=== PATIENT | male | born 1975 | race Hispanic/Latino ===

== ENCOUNTER 2020-06-21 19:09 | Inpatient (IN) | payer SELFPAY ==
[~2020-06-21] VITALS: Ht 172.7 cm; Wt 94.6 kg
[2020-06-21] MEDS ORDERED: SODIUM CHLORIDE 0.9% 1000ML 2,000 ML IV ONE (19:50)
[2020-06-21] MEDS ORDERED: CLINDAMYCIN 900 MG/D5% WATER 50 ML IV ONE (19:50)
[2020-06-21] MEDS ORDERED: CEFTRIAXONE SODIUM 2 GM VIAL ONE (19:50)
[2020-06-21] MEDS ORDERED: SODIUM CHLORIDE 0.9% 50 ML IV ONE (19:51)
[2020-06-21 19:59] LABS: BASOPHILS % (AUTO) 0.5 % (0.0-5.0); EOSINOPHILS % (AUTO) 0.1 % (0.0-8.0); LYMPHOCYTES % (AUTO) 14.2 % (21.0-51.0); MEAN CORPUSCULAR HEMOGLOBIN 27.2 pg (27.0-33.0); MEAN CORPUSCULAR HGB CONC 33.3 g/dL (32.0-36.0); MEAN CORPUSCULAR VOLUME 81.5 fL (79-99); NEUTROPHILS % (AUTO) 73.4 % (40.0-77.0); PLATELET COUNT (AUTO) 266 K/uL (130-400); RED BLOOD CELL COUNT(AUTO) 5.89 MIL/uL (4.50-6.20); RED CELL DISTRIBUTION WIDTH 15.9 % (11.0-15.5); WHITE BLOOD COUNT (AUTO) 18.2 K/uL (4.8-10.8)
[2020-06-21] MEDS ORDERED: IOHEXOL-350 50ML VIAL IV ONE (20:05)
[2020-06-21 20:11] LABS: CREATININE 1.3 mg/dL (0.5-1.5); POTASSIUM 3.6 mmol/L (3.5-5.1)
[2020-06-21 20:12] LABS: INR 1.16 (0.85-1.15); PARTIAL THROMBOPLASTIN TIME 30.7 SEC (26.3-35.5); PROTHROMBIN TIME 12.5 SEC (9.6-11.6)
[2020-06-21 20:13] LABS: APPEARANCE,URINE Clear (CLEAR); BILIRUBIN,URINE Negative (NEGATIVE); COLOR,URINE Yellow (YELLOW); GLUCOSE, URINE (UA) Negative (NEGATIVE); KETONES,URINE 15 mg/dL (NEGATIVE); LEUKOCYTE ESTERASE ,URINE Negative (NEGATIVE); NITRATE,URINE Negative (NEGATIVE); OCCULT BLOOD,URINE Negative (NEGATIVE); PROTEIN,URINE Trace mg/dL (NEGATIVE); UROBILINOGEN,URINE 0.2 mg/dL (0.2-1.0)
[2020-06-21 20:15] LABS: ALBUMIN 3.5 g/dL (3.5-5.0); BILIRUBIN,TOTAL 1.3 mg/dL (0.2-1.0); TOTAL PROTEIN, SERUM 8.2 g/dL (6.0-8.3)
[2020-06-21 20:49] LABS: BACTERIA,URINE Rare /HPF (None Seen); MUCUS,URINE Few LPF (None Seen); RBC,URINE 0-1 /HPF (0-1); SQUAMOUS EPITHELIAL CELL,UR Few /HPF (0-2); WBC,URINE 0-1 /HPF (0-1)
[2020-06-21] MEDS ORDERED: KETOROLAC TROMETHAMINE 30MG/ML ONE (21:03)
[2020-06-21] MEDS ORDERED: HYDROCODONE/ACETAMINOPHEN 5/325 MG TAB PO PRN (22:30)
[2020-06-21] MEDS ORDERED: ACETAMINOPHEN 325 MG TAB PO PRN ×2 (22:30)
[2020-06-21] MEDS ORDERED: NITROGLYCERIN 0.4 MG SL TAB SL PRN (22:30)
[2020-06-21] MEDS ORDERED: VANCOMYCIN PROTOCOL PER PHARMACY IV PRN (22:30)
[2020-06-21] MEDS ORDERED: DIPHENHYDRAMINE HCL 25 MG CAPSULE PO PRN (22:30)
[2020-06-21] MEDS ORDERED: ONDANSETRON HCL 4 MG/2 ML VIAL IV PRN (22:30)
[2020-06-21] MEDS ORDERED: SODIUM CHLORIDE 0.9% 1000ML 1,000 ML IV ONE ×2 (22:34→23:40)
[2020-06-21] MEDS ORDERED: ACETAMINOPHEN 325 MG TAB ONE (23:26)
[2020-06-21] MEDS ORDERED: VANCOMYCIN 1GM+NS 250ML IV SCH (23:45)
[2020-06-22 04:58] LABS: HEMATOCRIT 40.1 % (42-54); MEAN CORPUSCULAR HEMOGLOBIN 27.1 pg (27.0-33.0); MEAN CORPUSCULAR HGB CONC 33.2 g/dL (32.0-36.0); MEAN CORPUSCULAR VOLUME 81.8 fL (79-99); PLATELET COUNT (AUTO) 198 K/uL (130-400); RED CELL DISTRIBUTION WIDTH 15.6 % (11.0-15.5); WHITE BLOOD COUNT (AUTO) 20.4 K/uL (4.8-10.8)
[2020-06-22 05:16] LABS: ALBUMIN 2.7 g/dL (3.5-5.0); BILIRUBIN,TOTAL 1.1 mg/dL (0.2-1.0); CREATININE 1.1 mg/dL (0.5-1.5); POTASSIUM 3.3 mmol/L (3.5-5.1); TOTAL PROTEIN, SERUM 6.4 g/dL (6.0-8.3)
[2020-06-22 05:22] LABS: BAND NEUTROPHILS % (MANUAL) 11 % (0-2); LYMPHOCYTES % (MANUAL) 10 % (22-44); MAN.DIFF COMMENT-IMPRESSION MANUAL DIFFERENTIAL; MONOCYTES % (MANUAL) 4 % (2-9); PLATELET MORPHOLOGY COMMENT ADEQUATE; SEGMENTED NEUTROPHILS % 75 % (40-70)
[2020-06-22] MEDS: SODIUM CHLORIDE 0.9% 1000ML 1,000 ML IV SCH ×2 (08:30→18:29)
[2020-06-22 08:45] VITALS: BP 143/84
[2020-06-22] MEDS ORDERED: COMPOUND IV REFRIGERATED 1 EACH IVSOLN MISC PRN (09:15)
[2020-06-22] MEDS: FAMOTIDINE 20MG TAB 20 MG TAB PO SCH ×2 (09:28→20:14)
[2020-06-22] MEDS: HYDROCODONE/ACETAMINOPHEN 5/325 MG TAB PO PRN ×2 (09:30→23:53)
[2020-06-22] MEDS: ENOXAPARIN SODIUM 30 MG/0.3 ML SQ SCH (09:31)
[2020-06-22] MEDS: VANCOMYCIN 1.25 GM in SODIUM CHLORIDE 0.9% 250 ML IV SCH ×2 (10:21→21:16)
[2020-06-22] MEDS ORDERED: CLIN300C9 PO (10:37)
[2020-06-22 11:03] VITALS: BP 144/90
--- NOTE | 2020-06-22 13:09 | NUR ---
Pavithra MERINO NP, IN ROOM ASSESSING AND SPEAKING WITH PT.
[2020-06-22] MEDS ORDERED: KETOROLAC TROMETHAMINE 30MG/ML ONE (13:18)
--- NOTE | 2020-06-22 13:59 | NUR ---
INITIAL SW spoke with patient. He states he lives alone. No home services or DME. Patient is able to complete ADL's independently and drives. Patient is not working at this time. PCP was Dr. Owen Sanchez but he has not seen him in 2 years. Pharmacy is [facility] [facility] located on [address] [place] [address]. DCP is home. Patient has no insurance or benefits. He is a [place] citizen and has worked in the [place]. Patient was provided with community resources for post hospitalization follow up. Patient was also provided with Good RX card for prescriptions and educated on [employer] $4 medication program and [facility] $5 medication program. Patient is being assisted by [employer] for financial matters. Addendum: 06/22/20 at 1402 by PATSY MICHAEL SS Amended: Links added.
[2020-06-22 15:11] VITALS: BP 131/78
--- NOTE | 2020-06-22 17:14 | NUR ---
DR. HURT AND Pavithra MERINO, FORMULA TECHNICIAN, IN ROOM SPEAKING WITH PT. RE:PLAN OF CARE; PT.'S QUESTIONS ANSWERED.
[2020-06-22] MEDS ORDERED: POTASSIUM CHLORIDE 20 MEQ ERTAB PO PRN (19:15)
[2020-06-22] MEDS ORDERED: POTASSIUM CHLORIDE 20MEQ/100ML 100 ML IV PRN (19:15)
[2020-06-22] MEDS ORDERED: LIDOCAINE HCL-MPF 1% 2ML VIAL IV PRN (19:15)
[2020-06-22 19:50] VITALS: BP 161/96
[2020-06-22] MEDS ORDERED: ZOSYN 3.375GM+NS 50ML 50 ML IV SCH (20:00)
[2020-06-22] MEDS: POTASSIUM CHLORIDE 10% ELIXIR 20 MEQ/15 ML UDCUP PO PRN ×2 (20:14→22:26)
[2020-06-22] MEDS: KETOROLAC TROMETHAMINE 15MG/ML IV PRN (20:14)
--- NOTE | 2020-06-22 20:15 | NUR ---
MEDS SHIFT ASSESSMENT DONE, PLEASE REFER TO CHART. PT CLAIMS OF FACIAL AND NECK PAINS. DUE MEDS ADMINISTERED, TOLERATED WELL. MEDICATED WITH TORADOL FOR PAIN. STARTED ON PO POTASSIUM PER PROTOCOL. KEPT COMFORTABLE IN BED WITH HOB ELEVATED. CALL LIGHT WITHIN REACH. WILL RE-ASSESS PT. Addendum: 06/22/20 at 2232 by YANETH AVALOS RN RN Amended: Links added.
--- NOTE | 2020-06-22 20:20 | NUR ---
ARMORED SERVICE TECHNICIAN VHIC, ARMORED SERVICE TECHNICIAN FOR HOSPITALIST, ON THE FLOOR MAKING ROUNDS FOR NURSES. REFERRED PT'S CLAIMS THAT SWELLING ON HER FACE IS GETTING WORSE AFFECTING HIS NECK AND EYES. INFORMED THAT ZOSYN WAS JUST ORDERED FOR ADDITIONAL ANTIBIOTICS AND ALREADY STARTED. ORDERED ID CONSULT. CALLED DR BOGGS VIA PHONE AND INFORMED OF CONSULT. ID STATED TO INCLUDE PT ON HIS CENSUS. NO FURTHER ORDERS RECEIVED.
[2020-06-22 21:20] VITALS: BP 134/80
[2020-06-22] MEDS: ZOSYN 3.375GM+NS 50ML 50 ML IV SCH (21:20)
--- NOTE | 2020-06-22 21:20 | NUR ---
V/S RE-CHECKED V/S AND BP DECREASED TO 139/80 BUT TEMPERATURE INCREASED TO 99.6. SECOND PIV INSERTED TO LH G20 AND IV VANCO INFUSED. PT CLAIMS HE WANTED SOME TYLENOL TO PREVENT HIM FROM HAVING CHILLS HIS TEMPERATURE IS INCREASING. MEDICATED WITH TYLENOL 650MG PO. KEPT COMFORTABLE IN BED AND ENCOURAGED TO REST AND SLEEP. PT HAS HIS OWN CPAP MACHINE FROM HOME FOR HS USE.
[2020-06-22 23:24] VITALS: BP 148/89
--- NOTE | 2020-06-22 23:53 | NUR ---
PAIN PT CALLS FOR PAIN MEDICATION, CLAIMS OF PAIN ON HIS FACE AND NECK AREAS. MEDICATED WITH NORCO PO. KEPT COMFORTABLE IN BED. WILL RE-ASSESS PT. Addendum: 06/23/20 at 0005 by YANETH AVALOS RN RN Amended: Links added.
--- NOTE | 2020-06-23 01:35 | NUR ---
ROUNDS PT RESTING WELL, NO DISTRESS NOTED. KEPT UNDISTURBED FOR NOW. WILL CONTINUE TO MONITOR. CALL LIGHT WITHIN REACH.
[2020-06-23] MEDS: SODIUM CHLORIDE 0.9% 1000ML 1,000 ML IV SCH ×2 (03:04→21:26)
[2020-06-23] MEDS: POTASSIUM CHLORIDE 10% ELIXIR 20 MEQ/15 ML UDCUP PO PRN (03:04)
[2020-06-23] MEDS: KETOROLAC TROMETHAMINE 15MG/ML IV PRN ×4 (03:04→21:36)
[2020-06-23 04:00] VITALS: BP 142/86
--- NOTE | 2020-06-23 05:30 | NUR ---
ROUNDS DERRICK ENGINEER IN AND AWAKENED PT TO DRAW BLOOD. NO CONCERNS VERBALIZED. KEPT RESTED AND COMFORTABLE. FOR MORE CARE.
[2020-06-23] MEDS: HYDROCODONE/ACETAMINOPHEN 5/325 MG TAB PO PRN ×4 (05:51→22:42)
[2020-06-23 08:00] VITALS: BP 139/87
[2020-06-23 08:40] LABS: BASOPHILS % (AUTO) 0.1 % (0.0-5.0); EOSINOPHILS % (AUTO) 0.6 % (0.0-8.0); HEMATOCRIT 39.5 % (42-54); LYMPHOCYTES % (AUTO) 13.8 % (21.0-51.0); MEAN CORPUSCULAR HEMOGLOBIN 26.7 pg (27.0-33.0); MEAN CORPUSCULAR HGB CONC 31.6 g/dL (32.0-36.0); MEAN CORPUSCULAR VOLUME 84.4 fL (79-99); MONOCYTES % (AUTO) 8.5 % (3.0-13.0); NEUTROPHILS % (AUTO) 75.7 % (40.0-77.0); PLATELET COUNT (AUTO) 212 K/uL (130-400); RED BLOOD CELL COUNT(AUTO) 4.68 MIL/uL (4.50-6.20); RED CELL DISTRIBUTION WIDTH 15.9 % (11.0-15.5); WHITE BLOOD COUNT (AUTO) 14.3 K/uL (4.8-10.8)
[2020-06-23 08:50] LABS: POTASSIUM 4.2 mmol/L (3.5-5.1)
[2020-06-23] MEDS: ZOSYN 3.375GM+NS 50ML 50 ML IV SCH ×2 (09:13→19:45)
[2020-06-23] MEDS: FAMOTIDINE 20MG TAB 20 MG TAB PO SCH ×2 (09:13→19:45)
[2020-06-23] MEDS: ENOXAPARIN SODIUM 30 MG/0.3 ML SQ SCH (09:14)
[2020-06-23] MEDS: VANCOMYCIN 1.25 GM in SODIUM CHLORIDE 0.9% 250 ML IV SCH (10:06)
--- NOTE | 2020-06-23 11:21 | NUR ---
DR. JEREZ IN TO SEE PT.DR. ZAMUDIO TO CONSULT.
--- NOTE | 2020-06-23 11:42 | NUR ---
WHEN READY FOR DC, CM TO ASSIST WITH GOOD RX OR OTHER STRATEGIES FOR MEDICATIONS Addendum: 06/23/20 at 1143 by OFELIA CARLISLE RN CM Amended: Links added.
[2020-06-23 12:00] VITALS: BP 143/86
--- NOTE | 2020-06-23 14:00 | NUR ---
DR. BOGGS VISITED WITH PT. REVIEWED CHART/MEDS. CONTINUE SAME ABX.
[2020-06-23 16:00] VITALS: BP 148/86
--- NOTE | 2020-06-23 18:00 | NUR ---
DR. ZAMUDIO IN TO SEE PT. STATES WILL SEE HIM OUTPATIENT AND GET A SCAN THEN.
[2020-06-23 20:20] VITALS: BP 147/92
[2020-06-23] MEDS: VANCOMYCIN 1.5 GM in SODIUM CHLORIDE 0.9% 250 ML IV SCH (22:07)
[2020-06-23 23:56] VITALS: BP 143/89
[2020-06-24] MEDS: KETOROLAC TROMETHAMINE 15MG/ML IV PRN ×2 (03:34→09:44)
[2020-06-24 04:14] VITALS: BP 146/85
[2020-06-24 06:11] LABS: BASOPHILS % (AUTO) 0.2 % (0.0-5.0); EOSINOPHILS % (AUTO) 0.9 % (0.0-8.0); HEMATOCRIT 38.2 % (42-54); LYMPHOCYTES % (AUTO) 15.4 % (21.0-51.0); MEAN CORPUSCULAR HEMOGLOBIN 27.1 pg (27.0-33.0); MEAN CORPUSCULAR HGB CONC 32.7 g/dL (32.0-36.0); MEAN CORPUSCULAR VOLUME 82.9 fL (79-99); MONOCYTES % (AUTO) 6.6 % (3.0-13.0); NEUTROPHILS % (AUTO) 75.6 % (40.0-77.0); PLATELET COUNT (AUTO) 213 K/uL (130-400); RED BLOOD CELL COUNT(AUTO) 4.61 MIL/uL (4.50-6.20); RED CELL DISTRIBUTION WIDTH 15.6 % (11.0-15.5); WHITE BLOOD COUNT (AUTO) 12.5 K/uL (4.8-10.8)
[2020-06-24] MEDS: SODIUM CHLORIDE 0.9% 1000ML 1,000 ML IV SCH ×3 (06:13→20:30)
[2020-06-24] MEDS: HYDROCODONE/ACETAMINOPHEN 5/325 MG TAB PO PRN ×3 (06:13→20:51)
[2020-06-24 06:29] LABS: POTASSIUM 4.1 mmol/L (3.5-5.1)
[2020-06-24 07:08] LABS: CRP QUANTITATIVE 272.1 mg/L (0.00-9.0)
[2020-06-24 07:30] VITALS: BP 133/86
[2020-06-24 07:41] LABS: CREATININE 0.9 mg/dL (0.5-1.5)
[2020-06-24] MEDS: VANCOMYCIN 1.5 GM in SODIUM CHLORIDE 0.9% 250 ML IV SCH ×2 (09:43→20:34)
[2020-06-24] MEDS: ZOSYN 3.375GM+NS 50ML 50 ML IV SCH ×2 (09:43→20:33)
[2020-06-24] MEDS: FAMOTIDINE 20MG TAB 20 MG TAB PO SCH ×2 (09:44→20:34)
[2020-06-24] MEDS: ENOXAPARIN SODIUM 30 MG/0.3 ML SQ SCH (09:45)
[2020-06-24 11:00] VITALS: BP 137/91
[2020-06-24 16:00] VITALS: BP 151/91
[2020-06-24] MEDS ORDERED: KETOROLAC TROMETHAMINE 30MG/ML ONE (16:57)
[2020-06-24 20:07] VITALS: BP 145/87
[2020-06-24] MEDS ORDERED: DEXAMETHASONE SOD PHOSPHATE 4 MG/ML 1ML VIAL ONE (20:32)
[2020-06-24] MEDS: DEXAMETHASONE SOD PHOSPHATE 4 MG/ML 1ML VIAL IVP SCH (20:34)
[2020-06-25] VITALS (7 sets, daily range): BP systolic 123–138; BP diastolic 75–88
[2020-06-25] MEDS: DEXAMETHASONE SOD PHOSPHATE 4 MG/ML 1ML VIAL IVP SCH ×3 (06:25→21:57)
[2020-06-25 06:26] LABS: HEMATOCRIT 38.8 % (42-54); MEAN CORPUSCULAR HEMOGLOBIN 26.7 pg (27.0-33.0); MEAN CORPUSCULAR HGB CONC 32.2 g/dL (32.0-36.0); MEAN CORPUSCULAR VOLUME 82.7 fL (79-99); RED BLOOD CELL COUNT(AUTO) 4.69 MIL/uL (4.50-6.20); RED CELL DISTRIBUTION WIDTH 15.6 % (11.0-15.5); WHITE BLOOD COUNT (AUTO) 10.8 K/uL (4.8-10.8)
[2020-06-25] MEDS: SODIUM CHLORIDE 0.9% 1000ML 1,000 ML IV SCH ×2 (06:30→15:48)
[2020-06-25] MEDS: FAMOTIDINE 20MG TAB 20 MG TAB PO SCH ×2 (09:09→21:57)
[2020-06-25] MEDS: ZOSYN 3.375GM+NS 50ML 50 ML IV SCH ×2 (09:10→21:59)
[2020-06-25] MEDS: ENOXAPARIN SODIUM 30 MG/0.3 ML SQ SCH (09:10)
[2020-06-25] MEDS: VANCOMYCIN 1.5 GM in SODIUM CHLORIDE 0.9% 250 ML IV SCH ×3 (09:10→22:34)
[2020-06-25] MEDS: HYDROCODONE/ACETAMINOPHEN 5/325 MG TAB PO PRN ×2 (09:21→17:22)
--- NOTE | 2020-06-25 13:32 | NUR ---
WAITING ON DR. Rosendo ROSSS FOR HOME ABX. EXPECT SWITCH TO PO Addendum: 06/25/20 at 1333 by OFELIA CARLISLE RN CM Amended: Links added.
[2020-06-26] VITALS (24 sets, daily range): BP systolic 124–152; BP diastolic 60–95
[2020-06-26] MEDS: KETOROLAC TROMETHAMINE 15MG/ML IV PRN (01:39)
[2020-06-26] MEDS: SODIUM CHLORIDE 0.9% 1000ML 1,000 ML IV SCH ×2 (02:30→13:23)
[2020-06-26] MEDS: VANCOMYCIN 1.5 GM in SODIUM CHLORIDE 0.9% 250 ML IV SCH ×3 (05:48→22:04)
[2020-06-26] MEDS: DEXAMETHASONE SOD PHOSPHATE 4 MG/ML 1ML VIAL IVP SCH ×3 (05:48→22:04)
[2020-06-26 05:58] LABS: BASOPHILS % (AUTO) 0.1 % (0.0-5.0); HEMATOCRIT 37.6 % (42-54); LYMPHOCYTES % (AUTO) 13.9 % (21.0-51.0); MEAN CORPUSCULAR HGB CONC 32.7 g/dL (32.0-36.0); MEAN CORPUSCULAR VOLUME 82.5 fL (79-99); MONOCYTES % (AUTO) 3.8 % (3.0-13.0); NEUTROPHILS % (AUTO) 81.1 % (40.0-77.0); PLATELET COUNT (AUTO) 247 K/uL (130-400); RED BLOOD CELL COUNT(AUTO) 4.56 MIL/uL (4.50-6.20); RED CELL DISTRIBUTION WIDTH 15.5 % (11.0-15.5); WHITE BLOOD COUNT (AUTO) 15.9 K/uL (4.8-10.8)
[2020-06-26 06:13] LABS: CREATININE 0.9 mg/dL (0.5-1.5); CRP QUANTITATIVE 105.3 mg/L (0.00-9.0)
[2020-06-26] MEDS: ENOXAPARIN SODIUM 30 MG/0.3 ML SQ SCH (09:30)
[2020-06-26] MEDS: FAMOTIDINE 20MG TAB 20 MG TAB PO SCH ×2 (09:30→22:03)
[2020-06-26] MEDS: ZOSYN 3.375GM+NS 50ML 50 ML IV SCH ×2 (09:30→22:03)
[2020-06-26] MEDS ORDERED: LACTATED RINGERS 1000ML 1,000 ML IV ONE (13:24)
[2020-06-26] MEDS ORDERED: MIDAZOLAM HCL 1 MG/ML 2ML VIAL ONE (14:15)
[2020-06-26] MEDS ORDERED: ROCURONIUM 10MG/1ML SYR 10 MG/ML ML ONE (14:16)
[2020-06-26] MEDS ORDERED: FENTANYL CITRATE PF 50 MCG/1 ML 2ML VIAL ONE ×2 (14:16)
[2020-06-26] MEDS ORDERED: PROPOFOL 10 MG/ML 20ML VIAL IV ONE (14:36)
[2020-06-26] MEDS ORDERED: CEFAZOLIN SODIUM 1 GM VIAL ONE (14:43)
[2020-06-26] MEDS ORDERED: RACEPINEPHRINE HCL 2.25% 0.5 ML NEB SOLN ONE (15:04)
[2020-06-26] MEDS: HYDROCODONE/ACETAMINOPHEN 5/325 MG TAB PO PRN (17:48)
[2020-06-27 03:53] VITALS: BP 125/78
[2020-06-27] MEDS: VANCOMYCIN 1.5 GM in SODIUM CHLORIDE 0.9% 250 ML IV SCH ×3 (05:44→20:58)
[2020-06-27] MEDS: DEXAMETHASONE SOD PHOSPHATE 4 MG/ML 1ML VIAL IVP SCH ×3 (05:45→22:13)
[2020-06-27 05:48] LABS: BASOPHILS % (AUTO) 0.1 % (0.0-5.0); HEMATOCRIT 36.9 % (42-54); LYMPHOCYTES % (AUTO) 11.3 % (21.0-51.0); MEAN CORPUSCULAR HEMOGLOBIN 27.4 pg (27.0-33.0); MEAN CORPUSCULAR HGB CONC 32.8 g/dL (32.0-36.0); MEAN CORPUSCULAR VOLUME 83.5 fL (79-99); MONOCYTES % (AUTO) 3.6 % (3.0-13.0); NEUTROPHILS % (AUTO) 83.8 % (40.0-77.0); PLATELET COUNT (AUTO) 253 K/uL (130-400); RED BLOOD CELL COUNT(AUTO) 4.42 MIL/uL (4.50-6.20); RED CELL DISTRIBUTION WIDTH 15.6 % (11.0-15.5); WHITE BLOOD COUNT (AUTO) 17.3 K/uL (4.8-10.8)
[2020-06-27 05:51] LABS: CREATININE 0.9 mg/dL (0.5-1.5); POTASSIUM 4.7 mmol/L (3.5-5.1)
--- NOTE | 2020-06-27 08:00 | NUR ---
AM SHIFT ASSESSMENT. AWAKE, SITING UP IN BED, SWELLING TO LT. SIDE FACE HAS GONE DOWN CONSIDERABLY, HAS NO PAIN, STATES HAS A LITTLE TROUBLE OPENING HIS MOUTH SWALLOWS WELL AND HAS NO DISCOMFORT WHEN HE IS EATING.
[2020-06-27 08:07] VITALS: BP 136/61
[2020-06-27] MEDS: SODIUM CHLORIDE 0.9% 1000ML 1,000 ML IV SCH ×3 (08:30→20:47)
[2020-06-27] MEDS: ZOSYN 3.375GM+NS 50ML 50 ML IV SCH ×2 (08:39→20:57)
[2020-06-27] MEDS: ENOXAPARIN SODIUM 30 MG/0.3 ML SQ SCH (08:40)
[2020-06-27] MEDS: FAMOTIDINE 20MG TAB 20 MG TAB PO SCH ×2 (08:41→20:57)
[2020-06-27 11:59] VITALS: BP 123/72
[2020-06-27 16:43] VITALS: BP 133/84
[2020-06-27] MEDS: HYDROCODONE/ACETAMINOPHEN 5/325 MG TAB PO PRN ×2 (16:45→20:58)
[2020-06-27 19:52] VITALS: BP 126/81
[2020-06-27 23:43] VITALS: BP 142/91
[2020-06-28 03:52] VITALS: BP 134/77
[2020-06-28] MEDS: SODIUM CHLORIDE 0.9% 1000ML 1,000 ML IV SCH ×2 (04:40→14:30)
[2020-06-28] MEDS: DEXAMETHASONE SOD PHOSPHATE 4 MG/ML 1ML VIAL IVP SCH ×3 (05:38→21:27)
[2020-06-28 06:06] LABS: BASOPHILS % (AUTO) 0.2 % (0.0-5.0); HEMATOCRIT 37.7 % (42-54); LYMPHOCYTES % (AUTO) 16.3 % (21.0-51.0); MEAN CORPUSCULAR HEMOGLOBIN 26.8 pg (27.0-33.0); MEAN CORPUSCULAR HGB CONC 32.1 g/dL (32.0-36.0); MEAN CORPUSCULAR VOLUME 83.6 fL (79-99); MONOCYTES % (AUTO) 5.7 % (3.0-13.0); NEUTROPHILS % (AUTO) 75.9 % (40.0-77.0); PLATELET COUNT (AUTO) 229 K/uL (130-400); RED BLOOD CELL COUNT(AUTO) 4.51 MIL/uL (4.50-6.20); RED CELL DISTRIBUTION WIDTH 15.8 % (11.0-15.5); WHITE BLOOD COUNT (AUTO) 11.7 K/uL (4.8-10.8)
[2020-06-28 06:17] LABS: CREATININE 0.9 mg/dL (0.5-1.5); POTASSIUM 4.7 mmol/L (3.5-5.1)
[2020-06-28] MEDS: VANCOMYCIN 1.5 GM in SODIUM CHLORIDE 0.9% 250 ML IV SCH ×3 (06:26→21:27)
[2020-06-28 09:07] VITALS: BP 122/74
[2020-06-28] MEDS: FAMOTIDINE 20MG TAB 20 MG TAB PO SCH ×2 (10:34→21:27)
[2020-06-28] MEDS: ENOXAPARIN SODIUM 30 MG/0.3 ML SQ SCH (10:35)
[2020-06-28] MEDS: ZOSYN 3.375GM+NS 50ML 50 ML IV SCH ×2 (10:35→21:27)
[2020-06-28 12:16] VITALS: BP 132/94
[2020-06-28 16:32] VITALS: BP 133/87
[2020-06-28 19:00] VITALS: BP 132/78
[2020-06-28] MEDS: HYDROCODONE/ACETAMINOPHEN 5/325 MG TAB PO PRN (22:06)
[2020-06-29] VITALS: BP 134/79
[2020-06-29] MEDS: SODIUM CHLORIDE 0.9% 1000ML 1,000 ML IV SCH ×2 (00:52→20:46)
[2020-06-29 04:00] VITALS: BP 146/90
[2020-06-29] MEDS: DEXAMETHASONE SOD PHOSPHATE 4 MG/ML 1ML VIAL IVP SCH ×3 (05:30→20:44)
[2020-06-29] MEDS: VANCOMYCIN 1.5 GM in SODIUM CHLORIDE 0.9% 250 ML IV SCH ×3 (05:31→20:45)
[2020-06-29 07:10] VITALS: BP 137/86
--- NOTE | 2020-06-29 08:00 | NUR ---
AM ASSESSMENT, FEELING AND STATES LOOKING BETTER. PLEASED BECAUSE HE NOW CAN OPEN HIS MOUTH AND CAN ACTUALLY FEEL HIS TEETH TOUCHING TOGETHER.
[2020-06-29] MEDS: FAMOTIDINE 20MG TAB 20 MG TAB PO SCH ×2 (09:11→20:44)
[2020-06-29] MEDS: ZOSYN 3.375GM+NS 50ML 50 ML IV SCH ×2 (09:12→20:45)
[2020-06-29] MEDS: ENOXAPARIN SODIUM 30 MG/0.3 ML SQ SCH (09:12)
[2020-06-29 10:46] VITALS: BP 121/75
--- NOTE | 2020-06-29 14:25 | NUR ---
VANCO TROUGH REPORTED TO PHARM, DOSING TO BE CHANGED.
[2020-06-29 15:26] VITALS: BP 140/83
[2020-06-29 20:12] VITALS: BP 121/84
[2020-06-29] MEDS: HYDROCODONE/ACETAMINOPHEN 5/325 MG TAB PO PRN (22:36)
[2020-06-30 00:16] VITALS: BP 131/83
[2020-06-30 04:20] VITALS: BP 123/78
[2020-06-30 06:05] LABS: BASOPHILS % (AUTO) 0.4 % (0.0-5.0); HEMATOCRIT 40.9 % (42-54); LYMPHOCYTES % (AUTO) 19.8 % (21.0-51.0); MEAN CORPUSCULAR HEMOGLOBIN 26.9 pg (27.0-33.0); MEAN CORPUSCULAR HGB CONC 32.8 g/dL (32.0-36.0); MONOCYTES % (AUTO) 4.2 % (3.0-13.0); NEUTROPHILS % (AUTO) 70.9 % (40.0-77.0); PLATELET COUNT (AUTO) 264 K/uL (130-400); RED BLOOD CELL COUNT(AUTO) 4.99 MIL/uL (4.50-6.20); RED CELL DISTRIBUTION WIDTH 15.5 % (11.0-15.5)
[2020-06-30 06:22] LABS: ALBUMIN 2.5 g/dL (3.5-5.0); BILIRUBIN,TOTAL 0.6 mg/dL (0.2-1.0); CREATININE 0.9 mg/dL (0.5-1.5); CRP QUANTITATIVE 17.8 mg/L (0.00-9.0); TOTAL PROTEIN, SERUM 5.8 g/dL (6.0-8.3)
[2020-06-30] MEDS: SODIUM CHLORIDE 0.9% 1000ML 1,000 ML IV SCH (06:30)
[2020-06-30] MEDS: VANCOMYCIN 1.5 GM in SODIUM CHLORIDE 0.9% 250 ML IV SCH ×2 (06:34→14:48)
[2020-06-30] MEDS: DEXAMETHASONE SOD PHOSPHATE 4 MG/ML 1ML VIAL IVP SCH ×2 (06:34→14:46)
--- NOTE | 2020-06-30 07:20 | NUR ---
ASSESSMENT ENCOUNTERED PT AMBULATING IN ROOM, A&OX3, CALM COOPERATIVE AND DOES NOT APPEAR TO BE IN ANY DISTRESS NOR ANY NEURO DEFICITS PRESENT. PT DENIES PAIN, SOB, NAUSEA. PT IS ABLE TO TOLERATE LIQUIDS AND MEDICATION WITH NO THROAT CLEARING OR COUGH. PT ALSO AMBULATING IN HALLWAY, GAIT STEADY AND STRONG WITH STAND BY ASSIST. CALL LIGHT WITHIN REACH.
[2020-06-30 07:30] VITALS: BP 127/85
[2020-06-30 07:44] LABS: ERYTHROCYTE SEDIMENTATION RATE 6 MM/HR (0-15)
[2020-06-30] MEDS: ENOXAPARIN SODIUM 30 MG/0.3 ML SQ SCH (09:01)
[2020-06-30] MEDS: ZOSYN 3.375GM+NS 50ML 50 ML IV SCH (09:01)
[2020-06-30] MEDS: FAMOTIDINE 20MG TAB 20 MG TAB PO SCH (09:03)
[2020-06-30 11:46] VITALS: BP 119/75
[2020-06-30 16:00] VITALS: BP 115/75
--- NOTE | 2020-06-30 18:10 | NUR ---
DISCHARGE INSTRUCTIONS GIVEN, PIV REMOVED, RX CALLED IN TO [facility], DISCHARGED HOME TO FAMILY VEHICLE VIA WHEELCHAIR.
== END 2020-06-30 18:10 | disposition home or self-care (01) | DRG 854 ==
LOC: EDH 19:09 → EDHIP 19:10 → 4CH 06-22 08:52
PROVIDERS: ADMIT Family Medicine; ATTEND Family Medicine
PROC: 0J910ZZ Drainage of Face Subcutaneous Tissue and Fascia, Open Approach (ICD-10-PCS; principal; 2020-06-26 14:25)
DX: A41.9 Sepsis, unspecified organism (principal); L03.211 Cellulitis of face; C85.90 Non-Hodgkin lymphoma, unspecified, unspecified site; L02.01 Cutaneous abscess of face; E66.01 Morbid (severe) obesity due to excess calories; K04.7 Periapical abscess without sinus; M60.9 Myositis, unspecified; Z85.821 Personal history of Merkel cell carcinoma; G51.0 Bell's palsy; Z85.71 Personal history of Hodgkin lymphoma; R59.0 Localized enlarged lymph nodes; Z20.828 Contact with and (suspected) exposure to other viral communicable diseases
CPT/HCPCS: 36415; 70491; 71045; 80048; 80053; 80202; 81001; 83605; 83735; 84132; 84145; 84484; 85025; 85027; 85610; 85651; 85730; 86140; 87040; 87070; 87076; 87088; 87205; 87426; 87641; 87804; 93005; G0378; J0690; J0696; J1100; J1650; J1885; J2250; J2543; J2704; J3010; J3370; J3490; J7030; J7050; J7120; Q9967; U0003